=== PATIENT | female | born 1985 | race Two or more races ===

== ENCOUNTER → 2018-06-21 | Emergency (ER) | payer OTHER ==
[~2018-06-21] VITALS: Ht 160 cm; Wt 59.0 kg
== END | disposition home or self-care (01) ==
LOC: ER 20:06
DX: M54.5 Low back pain (principal)

== ENCOUNTER 2018-06-22 17:14 | Emergency (ER) | payer OTHER ==
[~2018-06-22] VITALS: Ht 157.5 cm; Wt 59.0 kg
== END 2018-06-22 18:19 | disposition home or self-care (01) ==
LOC: ER 17:14
DX: M54.5 Low back pain (principal); M54.6 Pain in thoracic spine

== ENCOUNTER 2018-09-01 11:28 | Emergency (ER) | payer OTHER ==
[~2018-09-01] VITALS: Ht 160 cm; Wt 56.7 kg
== END 2018-09-01 14:59 | disposition home or self-care (01) ==
LOC: ER 11:28
DX: M54.5 Low back pain (principal)

== ENCOUNTER 2018-12-31 13:43 | Emergency (ER) | payer OTHER ==
[~2018-12-31] VITALS: Ht 160 cm; Wt 55.8 kg
== END 2018-12-31 17:46 | disposition home or self-care (01) ==
LOC: ER 13:43
DX: M62.830 Muscle spasm of back (principal); M54.2 Cervicalgia; R42 Dizziness and giddiness

== ENCOUNTER 2019-01-04 21:12 | Emergency (ER) | payer OTHER ==
[~2019-01-04] VITALS: Ht 160 cm; Wt 59.9 kg
== END 2019-01-04 22:55 | disposition home or self-care (01) ==
LOC: ER 21:12
DX: M54.89 Other dorsalgia (principal)